=== PATIENT | male | born 1955 | race Caucasian/White ===

== ENCOUNTER 2017-09-30 07:46 | Day surgery (SDC) | payer BC ==
[~2017-09-30 07:46] MED LIST: Lactated Ringers 1,000 ML IV SCH
[2017-09-30] MEDS ORDERED: fentaNYL 100 MCG/2 ML SDV ONE (09:06)
[2017-09-30] MEDS ORDERED: Propofol 200 MG/20 ML SDV ONE (09:06)
[2017-09-30 10:39] VITALS: BP 122/85
--- NOTE | 2017-09-30 12:11 | OR ---
PREOPERATIVE DIAGNOSIS: History of polyps. POSTOPERATIVE DIAGNOSIS: Essentially normal colonoscopic exam. PROCEDURE PROPOSED: Total flexible colonoscopy. PROCEDURE DONE: Total flexible colonoscopy. INDICATION: This is a 61-year-old gentleman who comes in for screening colonoscopy. He has a history of polyps. His last examination was 5 years ago. TECHNIQUE: The patient was brought to the endoscopy suite. He was placed in left lateral decubitus position. He was sedated per [employer] with propofol. The flexible video colonoscope was then passed transanally and under visualization advanced to the cecum. Examination revealed a normal ascending, transverse, descending, sigmoid, and rectal colon. There was no evidence of any polyps, diverticulosis, colitis, or any other abnormalities, and the scope was then withdrawn. The patient tolerated procedure well. FINAL IMPRESSION: 1. Essentially normal colonoscopic exam. 2. History of prior polyps. PLAN: I feel that he should continue colonic surveillance every 5 years hereafter. SCM: 09/30/2017 10:02:47 MODL: 09/30/2017 11:23:24 /[id number]
== END 2017-09-30 11:25 | disposition home or self-care (01) ==
LOC: VM.SDS 07:46
PROVIDERS: ATTEND Surgery
DX: Z12.11 Encounter for screening for malignant neoplasm of colon (principal); G11.9 Hereditary ataxia, unspecified; G60.8 Other hereditary and idiopathic neuropathies; Q60.0 Renal agenesis, unilateral; E66.9 Obesity, unspecified; Z68.35 Body mass index [BMI] 35.0-35.9, adult; Z79.82 Long term (current) use of aspirin; Z79.899 Other long term (current) drug therapy; Z91.048 Other nonmedicinal substance allergy status; Z90.89 Acquired absence of other organs; Z98.890 Other specified postprocedural states; Z86.010 Personal history of colon polyps
CPT/HCPCS: 45378; J2704; J3010; J7120

== ENCOUNTER 2023-02-05 06:47 | Day surgery (SDC) | payer MEDICARE, BC ==
[2023-02-05] MEDS ORDERED: Lactated Ringers 1,000 ML IV SCH (07:00)
[2023-02-05] MEDS ORDERED: fentaNYL 100 MCG/2 ML SDV ONE (07:59)
[2023-02-05] MEDS ORDERED: Propofol 200 MG/20 ML SDV ONE ×2 (07:59→08:34)
[2023-02-05 09:52] VITALS: BP 148/66; PULSE 62
== END 2023-02-05 10:20 | disposition home or self-care (01) ==
LOC: VM.SDS 06:47
PROVIDERS: ATTEND Family Medicine
DX: Z12.11 Encounter for screening for malignant neoplasm of colon (principal); D12.2 Benign neoplasm of ascending colon; D12.0 Benign neoplasm of cecum; D12.5 Benign neoplasm of sigmoid colon; E66.9 Obesity, unspecified; E55.9 Vitamin D deficiency, unspecified; G11.9 Hereditary ataxia, unspecified; E29.1 Testicular hypofunction; N28.1 Cyst of kidney, acquired; R35.0 Frequency of micturition; D47.2 Monoclonal gammopathy; D64.9 Anemia, unspecified; G62.89 Other specified polyneuropathies; Z68.35 Body mass index [BMI] 35.0-35.9, adult; Z87.438 Personal history of other diseases of male genital organs; Z79.82 Long term (current) use of aspirin; Z79.899 Other long term (current) drug therapy; Z85.038 Personal history of other malignant neoplasm of large intestine; Z91.018 Allergy to other foods; Z87.891 Personal history of nicotine dependence
CPT/HCPCS: 00811; 88305; J2704; J3010; J7120

== ENCOUNTER 2023-10-01 11:59 | Inpatient (IN) | payer MEDICARE, BC ==
[2023-10-01] MEDS ORDERED: Cyclobenzaprine 10 MG Tab PO PRN (13:30)
[2023-10-01] MEDS: Heparin Sodium 5,000 Units/ML Vial SUBCUT SCH (15:36)
[2023-10-01] MEDS: Acetaminophen 325 MG Tab PO PRN (22:06)
[2023-10-01] MEDS: Docusate Sodium 100 MG Cap PO SCH (22:06)
[2023-10-01] MEDS: Sennosides/Docusate Sodium 50-8.6 MG Tab PO SCH (22:07)
[2023-10-01] MEDS: Tamsulosin 0.4 MG Cap.ER PO SCH (22:07)
[2023-10-02 07:21] LABS: BASOPHILS ABSOLUTE AUTO 0.1 x10^3/uL (0.0-0.2); BASOPHILS PERCENT AUTO 0.7 % (0.2-1.2); EOSINOPHILS ABSOLUTE AUTO 0.1 x10^3/uL (0.0-0.5); EOSINOPHILS PERCENT AUTO 1.5 % (0.0-4.0); HEMATOCRIT 31.4 % (40.0-52.0); HEMOGLOBIN 10.3 g/dL (14.0-18.0); IMMATURE GRAN ABSOLUTE AUTO 0.23 x10^3/uL (0.00-0.07); LYMPHOCYTES ABSOLUTE AUTO 2.3 x10^3/uL (1.0-4.8); LYMPHOCYTES PERCENT AUTO 30.7 % (25.0-50.0); MEAN CORPUSCULAR HEMOGLOBIN 29.9 pg (26.0-32.0); MEAN CORPUSCULAR HGB CONC 32.8 g/dL (32.0-36.0); MONOCYTES ABSOLUTE AUTO 0.6 x10^3/uL (0.0-0.8); MONOCYTES PERCENT AUTO 7.4 % (2.0-11.0); NEUTROPHILS ABSOLUTE AUTO 4.2 x10^3/uL (1.8-7.7); NEUTROPHILS PERCENT AUTO 56.6 % (50.0-80.0); PLATELET COUNT,PLT 402 x10^3/uL (130-400); RED BLOOD CELL COUNT 3.45 x10^6/uL (4.5-6.0); WHITE BLOOD CELL COUNT,WBC 7.5 x10^3/uL (4.0-10.0)
[2023-10-02 08:18] LABS: ANISOCYTOSIS 1+ SLIGHT; BAND PERCENT MAN 2 % (0-6); LYMPHOCYTES PERCENT MAN 23 % (25-50); MONOCYTES PERCENT MAN 8 % (2-11); SEG NEUTROPHILS PERCENT MAN 67 % (50-80)
[2023-10-02 08:19] LABS: PLATELET COUNT ESTIMATE INCREASED; STOMATOCYTES 1+ SLIGHT
[2023-10-02] MEDS ORDERED: Polyethylene Glycol 3350 Powder 17 GM Packet PO SCH (09:00)
[2023-10-02] MEDS ORDERED: Tamsulosin 0.4 MG Cap.ER PO SCH (09:00)
[2023-10-02] MEDS: Cholecalciferol (Vitamin D3) 25 MCG Tab PO SCH (09:52)
[2023-10-02] MEDS: FLUoxetine 10 MG Cap PO SCH (09:52)
[2023-10-02] MEDS: Multivitamin Tab PO SCH (09:52)
[2023-10-02] MEDS: Polyethylene Glycol 3350 Powder 17 GM Packet PO PRN (15:54)
[2023-10-03] MEDS: Bisacodyl 10 MG Supp RECTAL PRN (09:06)
[2023-10-05 06:59] LABS: BASOPHILS PERCENT AUTO 0.3 % (0.2-1.2); EOSINOPHILS ABSOLUTE AUTO 0.1 x10^3/uL (0.0-0.5); EOSINOPHILS PERCENT AUTO 2.1 % (0.0-4.0); HEMATOCRIT 32.5 % (40.0-52.0); HEMOGLOBIN 10.9 g/dL (14.0-18.0); IMMATURE GRAN ABSOLUTE AUTO 0.06 x10^3/uL (0.00-0.07); LYMPHOCYTES ABSOLUTE AUTO 2.5 x10^3/uL (1.0-4.8); LYMPHOCYTES PERCENT AUTO 36.6 % (25.0-50.0); MEAN CORPUSCULAR HGB CONC 33.5 g/dL (32.0-36.0); MEAN CORPUSCULAR VOLUME 89.5 fL (78.0-93.0); MONOCYTES ABSOLUTE AUTO 0.6 x10^3/uL (0.0-0.8); MONOCYTES PERCENT AUTO 8.2 % (2.0-11.0); NEUTROPHILS ABSOLUTE AUTO 3.5 x10^3/uL (1.8-7.7); NEUTROPHILS PERCENT AUTO 51.9 % (50.0-80.0); PLATELET COUNT,PLT 288 x10^3/uL (130-400); RED BLOOD CELL COUNT 3.63 x10^6/uL (4.5-6.0); WHITE BLOOD CELL COUNT,WBC 6.7 x10^3/uL (4.0-10.0)
[2023-10-05 07:15] LABS: ANION GAP 13.3 mmol/L (5-15); CALCIUM 9.3 mg/dL (8.5-10.1); CREATININE 0.6 mg/dL (0.70-1.30); EST CRCL DRUG DOSING (CG) 121.11 mL/min; POTASSIUM,K 4.3 mmol/L (3.5-5.1)
[2023-10-08 07:17] LABS: BASOPHILS PERCENT AUTO 0.3 % (0.2-1.2); EOSINOPHILS ABSOLUTE AUTO 0.1 x10^3/uL (0.0-0.5); EOSINOPHILS PERCENT AUTO 1.6 % (0.0-4.0); HEMATOCRIT 30.9 % (40.0-52.0); HEMOGLOBIN 10.3 g/dL (14.0-18.0); IMMATURE GRAN ABSOLUTE AUTO 0.06 x10^3/uL (0.00-0.07); LYMPHOCYTES PERCENT AUTO 25.9 % (25.0-50.0); MEAN CORPUSCULAR HEMOGLOBIN 29.9 pg (26.0-32.0); MEAN CORPUSCULAR HGB CONC 33.3 g/dL (32.0-36.0); MEAN CORPUSCULAR VOLUME 89.8 fL (78.0-93.0); MONOCYTES ABSOLUTE AUTO 0.8 x10^3/uL (0.0-0.8); MONOCYTES PERCENT AUTO 10.8 % (2.0-11.0); NEUTROPHILS ABSOLUTE AUTO 4.7 x10^3/uL (1.8-7.7); NEUTROPHILS PERCENT AUTO 60.6 % (50.0-80.0); PLATELET COUNT,PLT 220 x10^3/uL (130-400); RED BLOOD CELL COUNT 3.44 x10^6/uL (4.5-6.0); WHITE BLOOD CELL COUNT,WBC 7.7 x10^3/uL (4.0-10.0)
[2023-10-08 07:34] LABS: CALCIUM 8.8 mg/dL (8.5-10.1); CREATININE 0.6 mg/dL (0.70-1.30); EST CRCL DRUG DOSING (CG) 121.11 mL/min; POTASSIUM,K 4.3 mmol/L (3.5-5.1)
[2023-10-08 07:36] LABS: ANION GAP 15.3 mmol/L (5-15)
[2023-10-08] MEDS: FLUoxetine 10 MG Cap PO ONE ×2 (16:28→16:30)
[2023-10-09] MEDS: FLUoxetine 10 MG Cap PO SCH (11:02)
[2023-10-12 07:23] LABS: APPEARANCE,URINE CLOUDY (CLEAR); BILIRUBIN,URINE NEGATIVE (NEGATIVE); COLOR,URINE YELLOW (YELLOW); GLUCOSE,URINE NEGATIVE (NEGATIVE); KETONES,URINE NEGATIVE (NEGATIVE); LEUKOCYTE ESTERASE,URINE LARGE (NEGATIVE); NITRITE,URINE NEGATIVE (NEGATIVE); OCCULT BLOOD,URINE SMALL (NEGATIVE); PROTEIN,URINE TRACE mg/dL (NEGATIVE)
[2023-10-12 07:33] LABS: BACTERIA,URINE MANY /HPF (NOT SEEN); CALCIUM OXALATE CRYSTALS,URINE FEW /HPF (NOT SEEN); SQUAMOUS EPITHELIAL CELLS,UR NOT SEEN /HPF (NOT SEEN); WBC,URINE 75-100 /HPF (NOT SEEN)
[2023-10-12] MEDS ORDERED: Amoxicillin 250 MG/5 ML Susp 150 ML Bottle PO SCH (09:00)
[2023-10-12] MEDS ORDERED: cefTRIAXone 1 GM Vial IM ONE (09:00)
[2023-10-12 09:45] LABS: BASOPHILS PERCENT AUTO 0.4 % (0.2-1.2); EOSINOPHILS ABSOLUTE AUTO 0.1 x10^3/uL (0.0-0.5); EOSINOPHILS PERCENT AUTO 1.6 % (0.0-4.0); HEMOGLOBIN 10.1 g/dL (14.0-18.0); IMMATURE GRAN ABSOLUTE AUTO 0.02 x10^3/uL (0.00-0.07); LYMPHOCYTES ABSOLUTE AUTO 0.9 x10^3/uL (1.0-4.8); LYMPHOCYTES PERCENT AUTO 12.7 % (25.0-50.0); MEAN CORPUSCULAR HEMOGLOBIN 29.9 pg (26.0-32.0); MEAN CORPUSCULAR HGB CONC 33.7 g/dL (32.0-36.0); MEAN CORPUSCULAR VOLUME 88.8 fL (78.0-93.0); MONOCYTES ABSOLUTE AUTO 0.8 x10^3/uL (0.0-0.8); MONOCYTES PERCENT AUTO 10.9 % (2.0-11.0); NEUTROPHILS ABSOLUTE AUTO 5.4 x10^3/uL (1.8-7.7); NEUTROPHILS PERCENT AUTO 74.1 % (50.0-80.0); PLATELET COUNT,PLT 184 x10^3/uL (130-400); RED BLOOD CELL COUNT 3.38 x10^6/uL (4.5-6.0); WHITE BLOOD CELL COUNT,WBC 7.3 x10^3/uL (4.0-10.0)
[2023-10-12 10:02] LABS: ANION GAP 13.2 mmol/L (5-15); C-REACTIVE PROTEIN 18.64 mg/dL (<=0.50); CALCIUM 9.2 mg/dL (8.5-10.1); CREATININE 0.6 mg/dL (0.70-1.30); EST CRCL DRUG DOSING (CG) 121.11 mL/min; POTASSIUM,K 4.2 mmol/L (3.5-5.1)
[2023-10-12] MEDS: cefTRIAXone 1 GM Vial IM ONE (10:20)
[2023-10-13] MEDS: Amoxicillin 500 MG Cap PO SCH (09:17)
[2023-10-13] MEDS: Polyethylene Glycol 3350 Powder 17 GM Packet PO SCH (22:08)
[2023-10-14] MEDS: Amoxicillin/Clavulanate K 875-125 MG Tab PO SCH (10:11)
[2023-10-15] MEDS: Cyclobenzaprine 10 MG Tab PO ONE (01:04)
[2023-10-15 06:39] LABS: BASOPHILS PERCENT AUTO 0.5 % (0.2-1.2); EOSINOPHILS ABSOLUTE AUTO 0.2 x10^3/uL (0.0-0.5); EOSINOPHILS PERCENT AUTO 3.4 % (0.0-4.0); HEMATOCRIT 27.2 % (40.0-52.0); HEMOGLOBIN 9.3 g/dL (14.0-18.0); IMMATURE GRAN ABSOLUTE AUTO 0.08 x10^3/uL (0.00-0.07); LYMPHOCYTES ABSOLUTE AUTO 2.3 x10^3/uL (1.0-4.8); LYMPHOCYTES PERCENT AUTO 39.5 % (25.0-50.0); MEAN CORPUSCULAR HEMOGLOBIN 29.8 pg (26.0-32.0); MEAN CORPUSCULAR HGB CONC 34.2 g/dL (32.0-36.0); MEAN CORPUSCULAR VOLUME 87.2 fL (78.0-93.0); MONOCYTES ABSOLUTE AUTO 0.8 x10^3/uL (0.0-0.8); MONOCYTES PERCENT AUTO 13.1 % (2.0-11.0); NEUTROPHILS ABSOLUTE AUTO 2.5 x10^3/uL (1.8-7.7); NEUTROPHILS PERCENT AUTO 42.1 % (50.0-80.0); PLATELET COUNT,PLT 209 x10^3/uL (130-400); RED BLOOD CELL COUNT 3.12 x10^6/uL (4.5-6.0); WHITE BLOOD CELL COUNT,WBC 5.9 x10^3/uL (4.0-10.0)
[2023-10-15 06:54] LABS: CALCIUM 9.1 mg/dL (8.5-10.1); CREATININE 0.5 mg/dL (0.70-1.30); EST CRCL DRUG DOSING (CG) 145.33 mL/min; POTASSIUM,K 4.4 mmol/L (3.5-5.1)
[2023-10-15 06:57] LABS: ANION GAP 12.4 mmol/L (5-15)
[2023-10-15] MEDS: Magnesium Oxide 400 MG Tab PO SCH (20:16)
[2023-10-15] MEDS: Cyclobenzaprine 10 MG Tab PO PRN (20:21)
[2023-10-16] MEDS ORDERED: ALPRAZolam 0.25 MG Tab PO PRN (08:10)
[2023-10-16] MEDS ORDERED: Cyclobenzaprine 10 MG Tab PO PRN (08:10)
[2023-10-16] MEDS: Baclofen 10 MG Tab PO PRN (08:31)
[2023-10-22] MEDS: Acetaminophen/oxyCODONE 325-5 MG Tab PO PRN (06:07)
[2023-10-22 06:42] LABS: HEMATOCRIT 27.1 % (40.0-52.0); HEMOGLOBIN 9.1 g/dL (14.0-18.0); MEAN CORPUSCULAR HEMOGLOBIN 29.2 pg (26.0-32.0); MEAN CORPUSCULAR HGB CONC 33.6 g/dL (32.0-36.0); MEAN CORPUSCULAR VOLUME 86.9 fL (78.0-93.0); PLATELET COUNT,PLT 436 x10^3/uL (130-400); RED BLOOD CELL COUNT 3.12 x10^6/uL (4.5-6.0); WHITE BLOOD CELL COUNT,WBC 8.9 x10^3/uL (4.0-10.0)
[2023-10-22 06:57] LABS: CALCIUM 8.9 mg/dL (8.5-10.1); CREATININE 0.5 mg/dL (0.70-1.30); EST CRCL DRUG DOSING (CG) 145.33 mL/min; POTASSIUM,K 4.2 mmol/L (3.5-5.1)
[2023-10-22 06:58] LABS: ANION GAP 13.2 mmol/L (5-15)
[2023-10-22 07:06] LABS: BAND PERCENT MAN 1 % (0-6); EOSINOPHILS ABSOLUTE MAN 0.3 x10^3/uL (0.0-0.5); EOSINOPHILS PERCENT MAN 3 % (0-4); HYPOCHROMASIA 1+ SLIGHT; LYMPHOCYTES ABSOLUTE MAN 3.2 x10^3/uL (1.0-4.8); LYMPHOCYTES PERCENT MAN 36 % (25-50); MONOCYTES ABSOLUTE MAN 0.4 x10^3/uL (0.0-0.8); MONOCYTES PERCENT MAN 5 % (2-11); PLATELET COUNT ESTIMATE INCREASED; SEG NEUTROPHILS PERCENT MAN 55 % (50-80)
[2023-10-22] MEDS: Testosterone Cypionate 200 MG/ML MDV IM SCH (14:27)
[2023-10-23] MEDS: Heparin Sodium 5,000 Units/ML Vial SUBCUT SCH (15:05)
[2023-10-26 07:17] LABS: BASOPHILS ABSOLUTE AUTO 0.1 x10^3/uL (0.0-0.2); BASOPHILS PERCENT AUTO 0.4 % (0.2-1.2); EOSINOPHILS ABSOLUTE AUTO 0.2 x10^3/uL (0.0-0.5); EOSINOPHILS PERCENT AUTO 1.7 % (0.0-4.0); HEMATOCRIT 29.3 % (40.0-52.0); HEMOGLOBIN 9.6 g/dL (14.0-18.0); IMMATURE GRAN ABSOLUTE AUTO 0.49 x10^3/uL (0.00-0.07); LYMPHOCYTES ABSOLUTE AUTO 2.8 x10^3/uL (1.0-4.8); LYMPHOCYTES PERCENT AUTO 24.9 % (25.0-50.0); MEAN CORPUSCULAR HEMOGLOBIN 28.4 pg (26.0-32.0); MEAN CORPUSCULAR HGB CONC 32.8 g/dL (32.0-36.0); MEAN CORPUSCULAR VOLUME 86.7 fL (78.0-93.0); MONOCYTES ABSOLUTE AUTO 0.6 x10^3/uL (0.0-0.8); NEUTROPHILS ABSOLUTE AUTO 7.2 x10^3/uL (1.8-7.7); NEUTROPHILS PERCENT AUTO 63.7 % (50.0-80.0); PLATELET COUNT,PLT 412 x10^3/uL (130-400); RED BLOOD CELL COUNT 3.38 x10^6/uL (4.5-6.0); WHITE BLOOD CELL COUNT,WBC 11.3 x10^3/uL (4.0-10.0)
[2023-10-26 07:44] LABS: CALCIUM 9.2 mg/dL (8.5-10.1); CREATININE 0.6 mg/dL (0.70-1.30); EST CRCL DRUG DOSING (CG) 121.11 mL/min; POTASSIUM,K 4.4 mmol/L (3.5-5.1)
[2023-10-26 07:47] LABS: ANION GAP 13.4 mmol/L (5-15)
[2023-10-28] MEDS: Doxycycline Monohydrate 100 MG Cap PO SCH (18:00)
[2023-10-29 07:07] LABS: BASOPHILS PERCENT AUTO 0.2 % (0.2-1.2); EOSINOPHILS ABSOLUTE AUTO 0.1 x10^3/uL (0.0-0.5); EOSINOPHILS PERCENT AUTO 1.4 % (0.0-4.0); HEMATOCRIT 29.9 % (40.0-52.0); IMMATURE GRAN ABSOLUTE AUTO 0.17 x10^3/uL (0.00-0.07); LYMPHOCYTES ABSOLUTE AUTO 2.2 x10^3/uL (1.0-4.8); LYMPHOCYTES PERCENT AUTO 25.2 % (25.0-50.0); MEAN CORPUSCULAR HEMOGLOBIN 28.6 pg (26.0-32.0); MEAN CORPUSCULAR HGB CONC 33.4 g/dL (32.0-36.0); MEAN CORPUSCULAR VOLUME 85.4 fL (78.0-93.0); MONOCYTES ABSOLUTE AUTO 0.5 x10^3/uL (0.0-0.8); MONOCYTES PERCENT AUTO 6.2 % (2.0-11.0); NEUTROPHILS ABSOLUTE AUTO 5.7 x10^3/uL (1.8-7.7); PLATELET COUNT,PLT 291 x10^3/uL (130-400); WHITE BLOOD CELL COUNT,WBC 8.7 x10^3/uL (4.0-10.0)
[2023-11-03 07:26] LABS: BASOPHILS PERCENT AUTO 0.5 % (0.2-1.2); EOSINOPHILS ABSOLUTE AUTO 0.1 x10^3/uL (0.0-0.5); EOSINOPHILS PERCENT AUTO 1.1 % (0.0-4.0); HEMOGLOBIN 10.8 g/dL (14.0-18.0); IMMATURE GRAN ABSOLUTE AUTO 0.11 x10^3/uL (0.00-0.07); LYMPHOCYTES ABSOLUTE AUTO 2.6 x10^3/uL (1.0-4.8); MEAN CORPUSCULAR HEMOGLOBIN 28.3 pg (26.0-32.0); MEAN CORPUSCULAR HGB CONC 32.7 g/dL (32.0-36.0); MEAN CORPUSCULAR VOLUME 86.6 fL (78.0-93.0); MONOCYTES ABSOLUTE AUTO 0.3 x10^3/uL (0.0-0.8); MONOCYTES PERCENT AUTO 4.1 % (2.0-11.0); NEUTROPHILS ABSOLUTE AUTO 4.5 x10^3/uL (1.8-7.7); NEUTROPHILS PERCENT AUTO 58.9 % (50.0-80.0); PLATELET COUNT,PLT 278 x10^3/uL (130-400); RED BLOOD CELL COUNT 3.81 x10^6/uL (4.5-6.0); WHITE BLOOD CELL COUNT,WBC 7.6 x10^3/uL (4.0-10.0)
[2023-11-03 07:32] LABS: A/G RATIO 0.67; ALBUMIN 2.9 g/dL (3.4-5.0); BILIRUBIN TOTAL 0.4 mg/dL (0.2-1.0); CALCIUM 9.6 mg/dL (8.5-10.1); CREATININE 0.6 mg/dL (0.70-1.30); EST CRCL DRUG DOSING (CG) 121.11 mL/min; POTASSIUM,K 4.5 mmol/L (3.5-5.1); PROTEIN TOTAL,TP 7.2 g/dL (6.4-8.2)
[2023-11-03 07:43] LABS: ANION GAP 14.5 mmol/L (5-15)
[2023-11-03] MEDS: Calcium Citrate/Vitamin D3 315 MG-250 Unit Tab PO SCH (17:34)
[2023-11-06] MEDS: Testosterone Cypionate 200 MG/ML MDV IM ONE (13:59)
[2023-11-06] MEDS: Baclofen 10 MG Tab PO PRN (21:53)
[2023-11-11] MEDS: FLUoxetine 20 MG Cap PO SCH (10:00)
[2023-11-12] MEDS: Heparin Sodium 5,000 Units/ML Vial SUBCUT SCH (22:02)
[2023-11-13] MEDS: Cholecalciferol (Vitamin D3) 25 MCG Tab PO SCH (09:27)
[2023-11-14] MEDS: Promethazine 25 MG Tab PO PRN (22:10)
[2023-11-14] MEDS ORDERED: Ondansetron 4 MG Tab.DIS PO PRN (22:43)
[2023-11-14] MEDS: Calcium Carbonate 750 MG Tab.Chew PO PRN (22:59)
[2023-11-20 06:29] VITALS: BP 138/82; PULSE 65
== END 2023-11-20 11:30 | DRG 560 ==
LOC: VM.MS 11:59
PROVIDERS: ADMIT Internal Medicine; ATTEND Internal Medicine
DX: S82.202D Unspecified fracture of shaft of left tibia, subsequent encounter for closed fracture with routine healing (principal); G11.9 Hereditary ataxia, unspecified; N39.0 Urinary tract infection, site not specified; L03.116 Cellulitis of left lower limb; T79.A22D Traumatic compartment syndrome of left lower extremity, subsequent encounter; E66.9 Obesity, unspecified; R33.9 Retention of urine, unspecified; G60.8 Other hereditary and idiopathic neuropathies; N40.0 Benign prostatic hyperplasia without lower urinary tract symptoms; E29.1 Testicular hypofunction; F43.20 Adjustment disorder, unspecified; D64.89 Other specified anemias; B96.20 Unspecified Escherichia coli [E. coli] as the cause of diseases classified elsewhere; G31.84 Mild cognitive impairment of uncertain or unknown etiology; G25.81 Restless legs syndrome; S82.402D Unspecified fracture of shaft of left fibula, subsequent encounter for closed fracture with routine healing; M81.0 Age-related osteoporosis without current pathological fracture; Z91.048 Other nonmedicinal substance allergy status; Z79.899 Other long term (current) drug therapy; Z79.01 Long term (current) use of anticoagulants; Z86.010 Personal history of colon polyps; Z68.35 Body mass index [BMI] 35.0-35.9, adult; Z97.8 Presence of other specified devices
CPT/HCPCS: 36415; 51701; 51702; 51798; 80048; 80053; 81001; 82728; 83735; 85018; 85025; 86140; 87040; 87086; 87088; 87186; 87641; 95851-GO; 97110-GO; 97110-GP; 97116-GP; 97162-GP; 97166-GO; 97530-GO; 97530-GP; 97535-GO; A9270-GY; C1758; J0696; J1071; J1644

== ENCOUNTER 2024-10-20 02:20 | Emergency (ER) | payer MEDICARE, BC ==
[2024-10-20 02:59] VITALS: BP 165/61; PULSE 75
== END 2024-10-20 03:20 | disposition home or self-care (01) ==
LOC: VM.ED 02:20
DX: R33.9 Retention of urine, unspecified (principal); E66.9 Obesity, unspecified; Z91.018 Allergy to other foods; Z79.899 Other long term (current) drug therapy; Z68.35 Body mass index [BMI] 35.0-35.9, adult
CPT/HCPCS: 99283